=== PATIENT | male | born 1950 | race Caucasian/White ===

== ENCOUNTER 2017-09-13 06:12 | Day surgery (SDC) | payer OTHER ==
[2017-09-13] MEDS ORDERED: DIAZEPAM 5 MG TAB PO ONE (06:26)
[2017-09-13] MEDS ORDERED: NS 1,000 ML IV ONE (06:26)
[2017-09-13] MEDS ORDERED: ASPIRIN EC 325 MG TAB PO ONE ×2 (06:26→06:44)
[2017-09-13] MEDS ORDERED: diphenhydrAMINE 25 MG CAP PO ONE ×2 (06:26→06:43)
[2017-09-13] MEDS ORDERED: FAMOTIDINE 20 MG TAB PO ONE (06:26)
--- NOTE | 2017-09-13 06:41 | CPEKG ---
Heart Rate: 54 RR Interval: 1111 P-R Interval: 180 QRSD Interval: 92 QT Interval: 428 QTC Interval: 406 P Beaman: 36 QRS Beaman: 23 T Wave Beaman: 66 EKG Severity - ABNORMAL ECG - EKG Impression: SINUS BRADYCARDIA EKG Impression: MULTIPLE VENTRICULAR PREMATURE COMPLEXES EKG Impression: DIFFUSE T-WAVE ABNORMALITIES. NO SIGNIFICANT CHANGE FROM APRIL 16, 2015 Electronically Signed By: Elvin Herndon 13-Sep-2017 06:55:41
[2017-09-13] MEDS ORDERED: FAMOTIDINE 20 MG TAB ONE (06:43)
[2017-09-13] MEDS ORDERED: DIAZEPAM 5 MG TAB ONE (06:44)
[2017-09-13 06:52] LABS: % IMMATURE GRANULYOCYTES 0.2 % (0.0-1.1); ABSOLUTE IMMATURE GRANULOCYTES 0.01 10^3/uL (0.00-0.10); ADD DIFF? NO; ADD MORPH? NO; ADD SCAN? NO; ATYPICAL LYMPHOCYTE FLAG 20 (0-99); FRAGMENT RBC FLAG 0 (0-99); HEMATOCRIT 39.4 % (40.0-51.0); HEMOGLOBIN 13.9 g/dL (13.7-17.5); LEFT SHIFT FLG 0 (0-99); LIPEMIA HEMOLYSIS FLAG 90 (0-99); MEAN CELL HEMOGLOBIN CONCENTR. 35.3 g/dL (32.4-36.7); MEAN CELL VOLUME 90.6 fL (81.5-99.8); PLATELET CLUMPS FLAG 0 (0-99); PLATELET COUNT 204 10^3/uL (150-400); RED BLOOD CELL COUNT 4.35 10^6/uL (4.40-6.38); RED CELL DISTRIBUTION WIDTH 12.4 % (11.5-15.2)
[2017-09-13 07:04] LABS: INR 1.09 (0.83-1.16)
[2017-09-13 07:05] LABS: ANION GAP 14 mEq/L (8-16); CALCIUM 10.1 mg/dL (8.5-10.4); CARBON DIOXIDE 26 mEq/l (22-31); CHLORIDE 101 mEq/L (97-110); CHOLESTEROL 157 mg/dL (140-220); CHOLESTEROL/HDL RATIO 2.96 RATIO (1.00-4.97); CREATININE 1.5 mg/dL (0.7-1.3); GLOMERULAR FILTRATION RATE 46; GLUCOSE 99 mg/dL (70-100); HIGH DENSITY LIPOPROTEIN 53 mg/dL (40-65); LOW DENSITY LIPOPROTEIN 74 mg/dL (80-100); MAGNESIUM 1.7 mg/dL (1.6-2.3); NON-HIGH DENSITY LIPOPROTEIN 104 mg/dL (90-129); SODIUM 141 mEq/L (134-144); TRIGLYCERIDE 154 mg/dL (40-150); VERY LOW DENSITY LIPOPROTEINS 30 mg/dL (8-25)
--- NOTE | 2017-09-13 08:21 | PDHPUP ---
History & Physical Update H&P update statement: This history and physical update is based on an assessment of the patient which was completed after admission or registration (within 24 hours), but prior to the surgery/procedure. H&P update: H&P reviewed & patient examined, no change in patient's condition since H&P completed (left radial aertery approach.)
--- NOTE | 2017-09-13 08:22 | PDPROPOC ---
Sedation Plan of Care Sedation Plan of Care: vital signs stable, mental status noted, patient educated of risks, benefits, alternatives, patient can tolerate sedation ASA Classification: ASA 2 Planned drugs: fentanyl, midazolam Mallampati Score: Class 1 Mallampati Reference Image: Patient passed 3-3-2 rule?: Yes
[2017-09-13] MEDS ORDERED: fentaNYL 100 MCG/2 ML INJ ONE (08:27)
[2017-09-13] MEDS ORDERED: MIDAZOLAM 2 MG/2 ML VIAL ONE (08:27)
[2017-09-13] MEDS ORDERED: LIDOCAINE 1% 300 MG/30 ML SDV ONE (08:27)
[2017-09-13] MEDS ORDERED: VERAPAMIL 5 MG/2 ML VIAL ONE (08:28)
[2017-09-13] MEDS ORDERED: HEPARIN 10,000 UNIT/10 ML MDV ONE (08:28)
[2017-09-13] MEDS ORDERED: IOPAMIDOL (ISOVUE-370) 150 ML BTL IV ONE (08:28)
--- NOTE | 2017-09-13 09:19 | PDDXCAT ---
Diagnostic Cath Note - . 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 Patent vein graft to the obtuse marginal branch RCA: Luminal irregularities of up to 30% rSVG: Patent to obtuse marginal branch SULTANA: Patent to the LAD EDP: 10 mm of mercury Complications: None Estimated blood loss: <50ml Closure method: TR Band Assessment: Procedure: Please see attached computer report. Contrast: 50 cc. Sedation: 3 mg Versed, 75 mcg fentanyl. Radiation: 6.8 minutes fluoroscopy , 490 mGy. Conclusions: Severe [place] three-vessel coronary disease. Patent mammary artery to the LAD. Patent vein graft to the obtuse marginal branch. Normal filling pressures. No contraindications to FAA clearance identified by this study. Patient Problems: Problems Problem Status Onset Abnormal exercise myocardial perfusion study Acute Status post aorto-coronary artery bypass graft Acute Coronary artery disease Acute
== END 2017-09-13 12:48 | disposition home or self-care (01) ==
LOC: FCATH 06:12
PROVIDERS: ATTEND Internal Medicine Interventional Cardiology
PROC: 4A023N7 Measurement of Cardiac Sampling and Pressure, Left Heart, Percutaneous Approach (ICD-10-PCS; principal; 2017-09-13)
PROC: B2111ZZ Fluoroscopy of Multiple Coronary Arteries using Low Osmolar Contrast (ICD-10-PCS; principal; 2017-09-13)
PROC: B2151ZZ Fluoroscopy of Left Heart using Low Osmolar Contrast (ICD-10-PCS; principal; 2017-09-13)
DX: R94.39 Abnormal result of other cardiovascular function study (principal); I25.10 Atherosclerotic heart disease of native coronary artery without angina pectoris; Z95.1 Presence of aortocoronary bypass graft; Z95.5 Presence of coronary angioplasty implant and graft; E78.5 Hyperlipidemia, unspecified; I10 Essential (primary) hypertension; E11.9 Type 2 diabetes mellitus without complications
CPT/HCPCS: 93005; 93459; C1769; J1644; J2250; J3010; Q9967

== ENCOUNTER → 2018-11-26 | Outpatient (CLI) | payer OTHER | LOC: SUPIMAGING 10:22 | DX: M79.672 Pain in left foot (principal) | CPT/HCPCS: 73630-PN ==